=== PATIENT | female | born 1935 | race Caucasian/White ===

== ENCOUNTER 2021-04-22 14:35 | Inpatient (IN) | payer MEDICARE ==
[2021-04-22] MEDS ORDERED: Senokot S 8.6-50 MG TAB PO PRN (16:27)
[2021-04-22] MEDS: Atorvastatin Calcium 10 MG TAB PO SCH (20:49)
[2021-04-22] MEDS: HYDROcodone/Acetaminophen 7.5/325 mg Tablet PO SCH (20:52)
[2021-04-23] MEDS: Folic Acid 1 MG TAB PO SCH (09:09)
[2021-04-23] MEDS: Docusate 100 MG CAP PO SCH (09:09)
[2021-04-23] MEDS: Losartan Potassium 50 MG TAB PO SCH (09:09)
[2021-04-23] MEDS: Enoxaparin Sodium 40 MG/0.4 ML SYRINGE SC SCH (09:09)
[2021-04-23] MEDS: Potassium Bicarbonate/Cit Ac 20 MEQ TAB PO SCH (09:10)
[2021-04-23] MEDS: Estradiol 1 MG TAB PO SCH (09:10)
[2021-04-23] MEDS: HYDROcodone/Acetaminophen 7.5/325 mg Tablet PO SCH ×3 (09:10→21:04)
[2021-04-23] MEDS: Baclofen 10 MG TAB PO PRN (17:43)
[2021-04-23] MEDS: Atorvastatin Calcium 10 MG TAB PO SCH (21:03)
[2021-04-24 05:16] LABS: #Eosinphils 0.3 thou/uL (0.0-0.7); #Lymphocytes 0.9 thou/uL (1.20-3.40); #Monocytes 0.6 thou/uL (0.11-0.59); #Neutrophils 5.4 thou/uL (1.40-6.50); %Basophils 0.6 % (0.0-1.0); %Eosinophils 3.6 % (0.0-10.0); %Lymphocytes 12.3 % (21.0-51.0); %Monocytes 8.1 % (0.0-10.0); %Neutrophils 75.4 % (42.0-75.0); Mean Corpuscular HGB CONC 31.4 g/dL (32.0-36.0); Mean Corpuscular Hemoglobin 29.1 pg (27.0-31.0); Mean Platelet Volume 10.7 fL (7.4-10.4); Platelet Count 234 thou/uL (130-400); RBC Distribution Width 12.9 % (11.5-14.5); Red Blood Cell (RBC) Count 3.79 mill/uL (4.20-5.40); White Blood Cell (WBC) Count 7.2 thou/uL (4.8-10.8)
[2021-04-24 05:43] LABS: Anion Gap 10 mmol/L (10-20); BUN (Urea Nitrogen) 10 mg/dL (9.8-20.1); Calc. Creatinine Clearance 57 mL/min (70-130); Calcium 10.2 mg/dL (7.8-10.44); Carbon Dioxide 31 mmol/L (23-31); Chloride 104 mmol/L (98-107); Glucose 129 mg/dL (83-110); Potassium 3.9 mmol/L (3.5-5.1); Sodium 141 mmol/L (136-145)
[2021-04-24] MEDS: Docusate 100 MG CAP PO SCH (08:49)
[2021-04-24] MEDS: HYDROcodone/Acetaminophen 7.5/325 mg Tablet PO SCH ×3 (08:49→21:58)
[2021-04-24] MEDS: Enoxaparin Sodium 40 MG/0.4 ML SYRINGE SC SCH (08:49)
[2021-04-24] MEDS: Estradiol 1 MG TAB PO SCH (08:51)
[2021-04-24] MEDS: Losartan Potassium 50 MG TAB PO SCH (08:51)
[2021-04-24] MEDS: Folic Acid 1 MG TAB PO SCH (08:52)
[2021-04-24] MEDS: Potassium Bicarbonate/Cit Ac 20 MEQ TAB PO SCH (08:58)
[2021-04-24] MEDS: Baclofen 10 MG TAB PO PRN (11:20)
[2021-04-24] MEDS: Atorvastatin Calcium 10 MG TAB PO SCH (21:58)
[2021-04-25] MEDS: Enoxaparin Sodium 40 MG/0.4 ML SYRINGE SC SCH (09:26)
[2021-04-25] MEDS: HYDROcodone/Acetaminophen 7.5/325 mg Tablet PO SCH ×3 (09:26→21:01)
[2021-04-25] MEDS: Docusate 100 MG CAP PO SCH (09:27)
[2021-04-25] MEDS: Folic Acid 1 MG TAB PO SCH (09:27)
[2021-04-25] MEDS: Losartan Potassium 50 MG TAB PO SCH (09:27)
[2021-04-25] MEDS: Potassium Bicarbonate/Cit Ac 20 MEQ TAB PO SCH (09:27)
[2021-04-25] MEDS: Estradiol 1 MG TAB PO SCH (09:28)
[2021-04-25] MEDS: Baclofen 10 MG TAB PO PRN (11:17)
[2021-04-25] MEDS: Atorvastatin Calcium 10 MG TAB PO SCH (21:01)
[2021-04-26] MEDS: Losartan Potassium 50 MG TAB PO SCH (08:42)
[2021-04-26] MEDS: Estradiol 1 MG TAB PO SCH (08:42)
[2021-04-26] MEDS: Folic Acid 1 MG TAB PO SCH (08:42)
[2021-04-26] MEDS: Docusate 100 MG CAP PO SCH (08:42)
[2021-04-26] MEDS: Potassium Bicarbonate/Cit Ac 20 MEQ TAB PO SCH (08:42)
[2021-04-26] MEDS: HYDROcodone/Acetaminophen 7.5/325 mg Tablet PO SCH (08:43)
[2021-04-26] MEDS: Enoxaparin Sodium 40 MG/0.4 ML SYRINGE SC SCH (08:44)
[2021-04-26] MEDS: HYDROcodone/Acetaminophen 5/325 mg Tablet PO SCH ×2 (15:21→20:12)
[2021-04-26] MEDS: Atorvastatin Calcium 10 MG TAB PO SCH (20:11)
[2021-04-27] MEDS: HYDROcodone/Acetaminophen 5/325 mg Tablet PO SCH ×3 (08:18→19:48)
[2021-04-27] MEDS: Estradiol 1 MG TAB PO SCH (08:19)
[2021-04-27] MEDS: Potassium Bicarbonate/Cit Ac 20 MEQ TAB PO SCH (08:19)
[2021-04-27] MEDS: Docusate 100 MG CAP PO SCH ×2 (08:20→08:41)
[2021-04-27] MEDS: Losartan Potassium 50 MG TAB PO SCH (08:20)
[2021-04-27] MEDS: Enoxaparin Sodium 40 MG/0.4 ML SYRINGE SC SCH (08:20)
[2021-04-27] MEDS: Folic Acid 1 MG TAB PO SCH (08:20)
[2021-04-27] MEDS: Baclofen 10 MG TAB PO PRN (10:21)
[2021-04-27] MEDS: Atorvastatin Calcium 10 MG TAB PO SCH (19:50)
[2021-04-28] MEDS: Baclofen 10 MG TAB PO PRN ×2 (04:42→20:58)
[2021-04-28 05:20] LABS: #Basophils 0.1 thou/uL (0.0-0.2); #Eosinphils 0.3 thou/uL (0.0-0.7); #Lymphocytes 0.9 thou/uL (1.20-3.40); #Monocytes 0.6 thou/uL (0.11-0.59); #Neutrophils 4.1 thou/uL (1.40-6.50); %Basophils 1.5 % (0.0-1.0); %Eosinophils 4.6 % (0.0-10.0); %Lymphocytes 15.3 % (21.0-51.0); %Monocytes 10.4 % (0.0-10.0); %Neutrophils 68.2 % (42.0-75.0); Hemoglobin 11.8 g/dL (12.0-16.0); Mean Corpuscular HGB CONC 30.9 g/dL (32.0-36.0); Mean Corpuscular Hemoglobin 28.9 pg (27.0-31.0); Mean Corpuscular Volume 93.5 fL (78.0-98.0); Mean Platelet Volume 9.2 fL (7.4-10.4); Platelet Count 302 thou/uL (130-400); RBC Distribution Width 12.6 % (11.5-14.5)
[2021-04-28 05:38] LABS: Anion Gap 11 mmol/L (10-20); BUN (Urea Nitrogen) 16 mg/dL (9.8-20.1); Calc. Creatinine Clearance 49 mL/min (70-130); Calcium 10.5 mg/dL (7.8-10.44); Carbon Dioxide 30 mmol/L (23-31); Chloride 104 mmol/L (98-107); Glucose 141 mg/dL (83-110); Potassium 4.5 mmol/L (3.5-5.1); Sodium 140 mmol/L (136-145)
[2021-04-28] MEDS: HYDROcodone/Acetaminophen 5/325 mg Tablet PO SCH ×3 (08:16→20:55)
[2021-04-28] MEDS: Estradiol 1 MG TAB PO SCH (08:17)
[2021-04-28] MEDS: Losartan Potassium 50 MG TAB PO SCH (08:17)
[2021-04-28] MEDS: Docusate 100 MG CAP PO SCH (08:18)
[2021-04-28] MEDS: Folic Acid 1 MG TAB PO SCH (08:18)
[2021-04-28] MEDS: Enoxaparin Sodium 40 MG/0.4 ML SYRINGE SC SCH (08:18)
[2021-04-28] MEDS: Potassium Bicarbonate/Cit Ac 20 MEQ TAB PO SCH (08:18)
[2021-04-28 14:11] LABS: SARS-CoV-2 PCR by NAA Not Detected (NotDetected)
[2021-04-28] MEDS: Atorvastatin Calcium 10 MG TAB PO SCH (20:56)
[2021-04-29] MEDS: Docusate 100 MG CAP PO SCH (08:51)
[2021-04-29] MEDS: Potassium Bicarbonate/Cit Ac 20 MEQ TAB PO SCH (08:51)
[2021-04-29] MEDS: Estradiol 1 MG TAB PO SCH (08:51)
[2021-04-29] MEDS: HYDROcodone/Acetaminophen 5/325 mg Tablet PO SCH ×3 (08:52→20:46)
[2021-04-29] MEDS: Folic Acid 1 MG TAB PO SCH (08:52)
[2021-04-29] MEDS: Enoxaparin Sodium 40 MG/0.4 ML SYRINGE SC SCH (08:52)
[2021-04-29] MEDS: Losartan Potassium 50 MG TAB PO SCH (08:52)
[2021-04-29] MEDS: Baclofen 10 MG TAB PO PRN (18:02)
[2021-04-29] MEDS: Atorvastatin Calcium 10 MG TAB PO SCH (20:46)
[2021-04-30] MEDS: Baclofen 10 MG TAB PO PRN ×3 (00:33→22:04)
[2021-04-30] MEDS: Potassium Bicarbonate/Cit Ac 20 MEQ TAB PO SCH (08:07)
[2021-04-30] MEDS: Losartan Potassium 50 MG TAB PO SCH (08:07)
[2021-04-30] MEDS: Estradiol 1 MG TAB PO SCH (08:07)
[2021-04-30] MEDS: Folic Acid 1 MG TAB PO SCH (08:07)
[2021-04-30] MEDS: HYDROcodone/Acetaminophen 5/325 mg Tablet PO SCH ×3 (08:08→20:25)
[2021-04-30] MEDS: Enoxaparin Sodium 40 MG/0.4 ML SYRINGE SC SCH (08:08)
[2021-04-30] MEDS: Docusate 100 MG CAP PO SCH (08:08)
[2021-04-30] MEDS: Atorvastatin Calcium 10 MG TAB PO SCH (20:25)
[2021-05-01] MEDS: Baclofen 10 MG TAB PO PRN ×2 (07:45→14:35)
[2021-05-01] MEDS: HYDROcodone/Acetaminophen 5/325 mg Tablet PO SCH ×3 (08:11→20:01)
[2021-05-01] MEDS: Losartan Potassium 50 MG TAB PO SCH (08:12)
[2021-05-01] MEDS: Potassium Bicarbonate/Cit Ac 20 MEQ TAB PO SCH (08:12)
[2021-05-01] MEDS: Folic Acid 1 MG TAB PO SCH (08:12)
[2021-05-01] MEDS: Docusate 100 MG CAP PO SCH (08:13)
[2021-05-01] MEDS: Estradiol 1 MG TAB PO SCH (08:13)
[2021-05-01] MEDS: Enoxaparin Sodium 40 MG/0.4 ML SYRINGE SC SCH (08:13)
[2021-05-01] MEDS: Atorvastatin Calcium 10 MG TAB PO SCH (20:00)
[2021-05-01] MEDS: Ondansetron ODT 4 MG TAB SL PRN ×2 (20:01→23:54)
[2021-05-02] MEDS: Baclofen 10 MG TAB PO PRN ×2 (00:26→19:25)
[2021-05-02] MEDS ORDERED: Promethazine HCl 25 MG/ML VIAL IM SCH (02:00)
[2021-05-02 05:36] LABS: #Lymphocytes 0.6 thou/uL (1.20-3.40); #Monocytes 0.2 thou/uL (0.11-0.59); #Neutrophils 7.6 thou/uL (1.40-6.50); %Basophils 0.3 % (0.0-1.0); %Lymphocytes 6.7 % (21.0-51.0); %Monocytes 1.8 % (0.0-10.0); %Neutrophils 91.2 % (42.0-75.0); Hemoglobin 12.8 g/dL (12.0-16.0); Mean Corpuscular HGB CONC 31.2 g/dL (32.0-36.0); Mean Corpuscular Hemoglobin 28.7 pg (27.0-31.0); Mean Corpuscular Volume 91.9 fL (78.0-98.0); Mean Platelet Volume 8.7 fL (7.4-10.4); Platelet Count 375 thou/uL (130-400); RBC Distribution Width 12.4 % (11.5-14.5); Red Blood Cell (RBC) Count 4.47 mill/uL (4.20-5.40); White Blood Cell (WBC) Count 8.4 thou/uL (4.8-10.8)
[2021-05-02 05:52] LABS: ALT (SGPT) 26 U/L (8-55); AST (SGOT) 15 U/L (5-34); Albumin 4.4 g/dL (3.4-4.8); Alkaline Phosphatase 86 U/L (40-110); Anion Gap 17 mmol/L (10-20); BUN (Urea Nitrogen) 13 mg/dL (9.8-20.1); Bilirubin, Total Less than 0.2 mg/dL (0.2-1.2); Calc. Creatinine Clearance 52 mL/min (70-130); Calcium 10.7 mg/dL (7.8-10.44); Carbon Dioxide 25 mmol/L (23-31); Chloride 101 mmol/L (98-107); Globulin 2.9 g/dL (2.4-3.5); Glucose 166 mg/dL (83-110); Potassium 4.1 mmol/L (3.5-5.1); Protein, Total 7.3 g/dL (5.8-8.1); Sodium 139 mmol/L (136-145)
[2021-05-02] MEDS: Potassium Bicarbonate/Cit Ac 20 MEQ TAB PO SCH (08:58)
[2021-05-02] MEDS: Docusate 100 MG CAP PO SCH (08:58)
[2021-05-02] MEDS: Enoxaparin Sodium 40 MG/0.4 ML SYRINGE SC SCH (08:58)
[2021-05-02] MEDS: HYDROcodone/Acetaminophen 5/325 mg Tablet PO SCH ×3 (08:59→20:00)
[2021-05-02] MEDS: Folic Acid 1 MG TAB PO SCH (08:59)
[2021-05-02] MEDS: Estradiol 1 MG TAB PO SCH (08:59)
[2021-05-02] MEDS: Losartan Potassium 50 MG TAB PO SCH ×2 (08:59→10:01)
[2021-05-02] MEDS: Atorvastatin Calcium 10 MG TAB PO SCH (20:01)
[2021-05-02 20:32] LABS: SARS-CoV-2 NAA Rapid Test Not Detected (NotDetected)
[2021-05-03] MEDS: Baclofen 10 MG TAB PO PRN ×2 (04:15→21:42)
[2021-05-03] MEDS: HYDROcodone/Acetaminophen 5/325 mg Tablet PO SCH ×3 (08:26→20:01)
[2021-05-03] MEDS: Losartan Potassium 50 MG TAB PO SCH (08:27)
[2021-05-03] MEDS: Potassium Bicarbonate/Cit Ac 20 MEQ TAB PO SCH (08:27)
[2021-05-03] MEDS: Estradiol 1 MG TAB PO SCH (08:27)
[2021-05-03] MEDS: Enoxaparin Sodium 40 MG/0.4 ML SYRINGE SC SCH (08:28)
[2021-05-03] MEDS: Folic Acid 1 MG TAB PO SCH (08:28)
[2021-05-03] MEDS: Docusate 100 MG CAP PO SCH (08:28)
[2021-05-03 11:55] VITALS: BMI 23.6
[2021-05-03] MEDS ORDERED: Loperamide HCl 2 MG CAP PO SCH (17:30)
[2021-05-03] MEDS: Atorvastatin Calcium 10 MG TAB PO SCH (20:00)
[2021-05-04] MEDS: HYDROcodone/Acetaminophen 5/325 mg Tablet PO SCH ×3 (08:21→20:09)
[2021-05-04] MEDS: Enoxaparin Sodium 40 MG/0.4 ML SYRINGE SC SCH (08:21)
[2021-05-04] MEDS: Estradiol 1 MG TAB PO SCH (08:22)
[2021-05-04] MEDS: Docusate 100 MG CAP PO SCH (08:23)
[2021-05-04] MEDS: Potassium Bicarbonate/Cit Ac 20 MEQ TAB PO SCH (08:23)
[2021-05-04] MEDS: Folic Acid 1 MG TAB PO SCH (08:23)
[2021-05-04] MEDS: Losartan Potassium 50 MG TAB PO SCH (08:23)
[2021-05-04] MEDS: Atorvastatin Calcium 10 MG TAB PO SCH (20:10)
[2021-05-04] MEDS: Baclofen 10 MG TAB PO PRN (21:05)
[2021-05-05 07:16] VITALS: BP 118/68; TEMP 97.6
[2021-05-05] MEDS: Enoxaparin Sodium 40 MG/0.4 ML SYRINGE SC SCH (08:25)
[2021-05-05] MEDS: Folic Acid 1 MG TAB PO SCH (08:26)
[2021-05-05] MEDS: Estradiol 1 MG TAB PO SCH (08:26)
[2021-05-05] MEDS: Docusate 100 MG CAP PO SCH (08:26)
[2021-05-05] MEDS: Potassium Bicarbonate/Cit Ac 20 MEQ TAB PO SCH (08:26)
[2021-05-05] MEDS: Losartan Potassium 50 MG TAB PO SCH (08:26)
[2021-05-05] MEDS: HYDROcodone/Acetaminophen 5/325 mg Tablet PO SCH (08:27)
[2021-05-05] MEDS ORDERED: HYDROcodone/Acetaminophen 7.5/325 mg Tablet PO SCH (21:00)
== END 2021-05-05 13:20 | disposition home or self-care (01) | DRG 948 ==
LOC: MADMS 14:35
PROVIDERS: ADMIT Family Medicine; ATTEND Family Medicine
DX: R53.81 Other malaise (principal); Z20.822 Contact with and (suspected) exposure to COVID-19; I10 Essential (primary) hypertension; E78.5 Hyperlipidemia, unspecified; G89.29 Other chronic pain; R29.898 Other symptoms and signs involving the musculoskeletal system; M54.50 Low back pain, unspecified; E11.9 Type 2 diabetes mellitus without complications; R26.89 Other abnormalities of gait and mobility; D64.9 Anemia, unspecified; F03.90 Unspecified dementia, unspecified severity, without behavioral disturbance, psychotic disturbance, mood disturbance, and anxiety; R11.2 Nausea with vomiting, unspecified; Z79.899 Other long term (current) drug therapy; Z90.49 Acquired absence of other specified parts of digestive tract; Z90.89 Acquired absence of other organs; Z90.710 Acquired absence of both cervix and uterus; Z98.890 Other specified postprocedural states; Z79.890 Hormone replacement therapy; Z87.898 Personal history of other specified conditions; Z91.81 History of falling
CPT/HCPCS: 0240U; 36415; 36416; 80048; 80053; 82728; 85025; J1650; J2550; Q0162; U0003; U0005

== ENCOUNTER 2021-12-21 20:53 | Inpatient (IN) | payer OTHER ==
[2021-12-21 21:49] VITALS: BMI 21.6
[2021-12-21] MEDS ORDERED: HYDROcodone/Acetaminophen 7.5/325 mg Tablet PO PRN (23:20)
[2021-12-21] MEDS ORDERED: Oxybutynin 5 MG TAB PO SCH (23:30)
[2021-12-21] MEDS ORDERED: Donepezil HCl 10 MG TAB PO SCH (23:30)
[2021-12-22] MEDS ORDERED: Atorvastatin Calcium 10 MG TAB PO SCH (09:00)
[2021-12-22] MEDS: Docusate 100 MG CAP PO SCH (09:39)
[2021-12-22] MEDS: Estradiol 1 MG TAB PO SCH (09:39)
[2021-12-22] MEDS: Folic Acid 1 MG TAB PO SCH (09:40)
[2021-12-22] MEDS: Oxybutynin 5 MG TAB PO SCH ×2 (09:40→20:53)
[2021-12-22] MEDS: Losartan Potassium 50 MG TAB PO SCH (09:40)
[2021-12-22] MEDS: Empagliflozin 25 MG TAB PO SCH (09:44)
[2021-12-22] MEDS: Acetaminophen 325 MG TAB PO PRN ×2 (13:36→22:23)
[2021-12-22] MEDS: Fluconazole 100 MG TAB PO SCH (13:37)
[2021-12-22] MEDS: Donepezil HCl 10 MG TAB PO SCH (20:53)
[2021-12-22] MEDS: Baclofen 10 MG TAB PO PRN (20:54)
[2021-12-22] MEDS: Clotrimazole 1% Cream 15 GM TUBE TOP SCH (21:01)
[2021-12-23 05:48] LABS: ALT (SGPT) 14 U/L (8-55); AST (SGOT) 6 U/L (5-34); Albumin 3.2 g/dL (3.4-4.8); Alkaline Phosphatase 95 U/L (40-110); Anion Gap 15 mmol/L (10-20); BUN (Urea Nitrogen) 26 mg/dL (9.8-20.1); Bilirubin, Total 0.2 mg/dL (0.2-1.2); Calc. Creatinine Clearance 34 mL/min (70-130); Calcium 9.7 mg/dL (7.8-10.44); Carbon Dioxide 22 mmol/L (23-31); Chloride 105 mmol/L (98-107); Estimated GFR 57; Glucose 142 mg/dL (83-110); Protein, Total 6.2 g/dL (5.8-8.1); Sodium 138 mmol/L (136-145)
[2021-12-23 05:54] LABS: #Basophils 0.1 thou/uL (0.0-0.2); #Eosinphils 0.4 thou/uL (0.0-0.7); #Monocytes 0.6 thou/uL (0.11-0.59); %Basophils 1.2 % (0.0-1.0); %Eosinophils 6.1 % (0.0-10.0); %Lymphocytes 13.8 % (21.0-51.0); Hemoglobin 8.7 g/dL (12.0-16.0); Hypochromia SLIGHT = 6-15 cells (100X) (0-5/hpf); Large Platelets SLIGHT; MDiff Complete? YES; Macrocytosis SLIGHT = 6-15 cells (100X) (0-5/hpf); Mean Corpuscular HGB CONC 30.1 g/dL (32.0-36.0); Mean Corpuscular Hemoglobin 26.1 pg (27.0-31.0); Mean Platelet Volume 12.9 fL (7.4-10.4); Platelet Count 268 thou/uL (130-400); Polychromasia SLIGHT = 2-3 cells (100X) (0-2/hpf); Red Blood Cell (RBC) Count 3.32 mill/uL (4.20-5.40)
[2021-12-23] MEDS: Clotrimazole 1% Cream 15 GM TUBE TOP SCH ×2 (08:45→21:41)
[2021-12-23] MEDS: Estradiol 1 MG TAB PO SCH (08:46)
[2021-12-23] MEDS: Losartan Potassium 50 MG TAB PO SCH (08:46)
[2021-12-23] MEDS: Folic Acid 1 MG TAB PO SCH (08:48)
[2021-12-23] MEDS: Empagliflozin 25 MG TAB PO SCH (08:48)
[2021-12-23] MEDS: Oxybutynin 5 MG TAB PO SCH ×2 (08:48→21:35)
[2021-12-23] MEDS: Fluconazole 100 MG TAB PO SCH (08:49)
[2021-12-23] MEDS: Docusate 100 MG CAP PO SCH (08:49)
[2021-12-23 11:23] LABS: Hemoglobin A1c 7.8 % (4.0-6.0)
[2021-12-23] MEDS: Acetaminophen 325 MG TAB PO PRN ×2 (17:10→21:38)
[2021-12-23] MEDS: Baclofen 10 MG TAB PO PRN (21:36)
[2021-12-23] MEDS: Donepezil HCl 10 MG TAB PO SCH (21:36)
[2021-12-24] MEDS: Acetaminophen 325 MG TAB PO PRN ×3 (05:23→21:26)
[2021-12-24] MEDS: Clotrimazole 1% Cream 15 GM TUBE TOP SCH ×2 (08:04→21:28)
[2021-12-24] MEDS: Estradiol 1 MG TAB PO SCH (08:05)
[2021-12-24] MEDS: Oxybutynin 5 MG TAB PO SCH ×2 (08:05→21:19)
[2021-12-24] MEDS: Fluconazole 100 MG TAB PO SCH (08:05)
[2021-12-24] MEDS: Folic Acid 1 MG TAB PO SCH (08:05)
[2021-12-24] MEDS: Empagliflozin 25 MG TAB PO SCH (08:05)
[2021-12-24] MEDS: Docusate 100 MG CAP PO SCH (08:06)
[2021-12-24] MEDS: Losartan Potassium 50 MG TAB PO SCH (08:06)
[2021-12-24] MEDS: Donepezil HCl 10 MG TAB PO SCH (21:19)
[2021-12-24] MEDS: Baclofen 10 MG TAB PO PRN (21:26)
[2021-12-25] MEDS: Baclofen 10 MG TAB PO PRN ×3 (04:42→20:44)
[2021-12-25] MEDS: Acetaminophen 325 MG TAB PO PRN ×3 (04:43→20:44)
[2021-12-25] MEDS: Clotrimazole 1% Cream 15 GM TUBE TOP SCH ×2 (08:28→21:00)
[2021-12-25] MEDS: Oxybutynin 5 MG TAB PO SCH ×2 (08:29→20:42)
[2021-12-25] MEDS: Docusate 100 MG CAP PO SCH (08:29)
[2021-12-25] MEDS: Folic Acid 1 MG TAB PO SCH (08:29)
[2021-12-25] MEDS: Losartan Potassium 50 MG TAB PO SCH (08:29)
[2021-12-25] MEDS: Fluconazole 100 MG TAB PO SCH (08:30)
[2021-12-25] MEDS: Empagliflozin 25 MG TAB PO SCH (08:30)
[2021-12-25] MEDS: Estradiol 1 MG TAB PO SCH (08:30)
[2021-12-25] MEDS: Donepezil HCl 10 MG TAB PO SCH (20:43)
[2021-12-26] MEDS: Acetaminophen 325 MG TAB PO PRN ×4 (00:47→20:47)
[2021-12-26] MEDS: Baclofen 10 MG TAB PO PRN ×2 (07:40→20:47)
[2021-12-26] MEDS: Clotrimazole 1% Cream 15 GM TUBE TOP SCH ×2 (07:40→20:03)
[2021-12-26] MEDS: Estradiol 1 MG TAB PO SCH (08:09)
[2021-12-26] MEDS: Empagliflozin 25 MG TAB PO SCH (08:09)
[2021-12-26] MEDS: Losartan Potassium 50 MG TAB PO SCH (08:10)
[2021-12-26] MEDS: Docusate 100 MG CAP PO SCH (08:10)
[2021-12-26] MEDS: Oxybutynin 5 MG TAB PO SCH ×2 (08:10→20:03)
[2021-12-26] MEDS: Fluconazole 100 MG TAB PO SCH (08:10)
[2021-12-26] MEDS: Folic Acid 1 MG TAB PO SCH (08:10)
[2021-12-26 11:17] LABS: Bilirubin Negative (Negative); Blood, Urine Large (Negative); Glucose, Urine (Dipstick) >=1000 mg/dL (Negative); Ketone, Urine Negative (Negative); Leukocyte Large (Negative); Nitrite Negative (Negative); Protein, Urine (Dipstick) 100 mg/dL (Neg-Trace); Urobilinogen 0.2 mg/dL (Less than 2)
[2021-12-26 11:19] LABS: Clarity Cloudy (Clear)
[2021-12-26 11:28] LABS: Bacteria/HPF 1+ HPF (None Seen); WBC/HPF Greater Than 50 HPF (0-3)
[2021-12-26] MEDS: Phenazopyridine HCl 95 MG TAB PO SCH ×2 (13:47→17:28)
[2021-12-26] MEDS: Ciprofloxacin 500 MG TAB PO SCH (20:03)
[2021-12-26] MEDS: Donepezil HCl 10 MG TAB PO SCH (20:03)
[2021-12-27] MEDS: Ciprofloxacin 500 MG TAB PO SCH ×2 (05:30→20:31)
[2021-12-27] MEDS: Baclofen 10 MG TAB PO PRN ×2 (05:30→20:31)
[2021-12-27] MEDS: Acetaminophen 325 MG TAB PO PRN ×3 (05:30→20:32)
[2021-12-27] MEDS: Docusate 100 MG CAP PO SCH (08:51)
[2021-12-27] MEDS: Phenazopyridine HCl 95 MG TAB PO SCH ×3 (08:51→17:25)
[2021-12-27] MEDS: Empagliflozin 25 MG TAB PO SCH (08:51)
[2021-12-27] MEDS: Losartan Potassium 50 MG TAB PO SCH (08:52)
[2021-12-27] MEDS: Fluconazole 100 MG TAB PO SCH (08:52)
[2021-12-27] MEDS: Folic Acid 1 MG TAB PO SCH (08:52)
[2021-12-27] MEDS: Estradiol 1 MG TAB PO SCH (08:52)
[2021-12-27] MEDS: Oxybutynin 5 MG TAB PO SCH ×2 (08:52→20:31)
[2021-12-27] MEDS: Clotrimazole 1% Cream 15 GM TUBE TOP SCH ×2 (08:55→20:26)
[2021-12-27] MEDS: Donepezil HCl 10 MG TAB PO SCH (20:31)
[2021-12-28] MEDS: Ciprofloxacin 500 MG TAB PO SCH ×2 (06:03→20:29)
[2021-12-28] MEDS: Docusate 100 MG CAP PO SCH (08:07)
[2021-12-28] MEDS: Estradiol 1 MG TAB PO SCH (08:07)
[2021-12-28] MEDS: Acetaminophen 325 MG TAB PO PRN ×3 (08:07→20:30)
[2021-12-28] MEDS: Phenazopyridine HCl 95 MG TAB PO SCH ×2 (08:08→12:20)
[2021-12-28] MEDS: Losartan Potassium 50 MG TAB PO SCH (08:08)
[2021-12-28] MEDS: Empagliflozin 25 MG TAB PO SCH (08:08)
[2021-12-28] MEDS: Fluconazole 100 MG TAB PO SCH (08:09)
[2021-12-28] MEDS: Oxybutynin 5 MG TAB PO SCH ×2 (08:09→20:30)
[2021-12-28] MEDS: Baclofen 10 MG TAB PO PRN ×2 (08:09→15:43)
[2021-12-28] MEDS: Clotrimazole 1% Cream 15 GM TUBE TOP SCH ×2 (08:10→20:30)
[2021-12-28] MEDS: Folic Acid 1 MG TAB PO SCH (08:10)
[2021-12-28] MEDS: Donepezil HCl 10 MG TAB PO SCH (20:29)
[2021-12-29] MEDS: Baclofen 10 MG TAB PO PRN ×3 (04:10→17:15)
[2021-12-29] MEDS: Acetaminophen 325 MG TAB PO PRN ×3 (04:10→17:15)
[2021-12-29] MEDS: Ciprofloxacin 500 MG TAB PO SCH (06:09)
[2021-12-29] MEDS: Docusate 100 MG CAP PO SCH ×2 (08:11→08:15)
[2021-12-29] MEDS: Fluconazole 100 MG TAB PO SCH (08:11)
[2021-12-29] MEDS: Losartan Potassium 50 MG TAB PO SCH (08:11)
[2021-12-29] MEDS: Estradiol 1 MG TAB PO SCH (08:11)
[2021-12-29] MEDS: Oxybutynin 5 MG TAB PO SCH ×2 (08:12→21:12)
[2021-12-29] MEDS: Empagliflozin 25 MG TAB PO SCH (08:12)
[2021-12-29] MEDS: Clotrimazole 1% Cream 15 GM TUBE TOP SCH ×2 (08:12→21:12)
[2021-12-29] MEDS: Folic Acid 1 MG TAB PO SCH (08:12)
[2021-12-29] MEDS: Donepezil HCl 10 MG TAB PO SCH (21:12)
[2021-12-30] MEDS: Baclofen 10 MG TAB PO PRN ×4 (03:55→21:39)
[2021-12-30] MEDS: Acetaminophen 325 MG TAB PO PRN ×4 (03:55→21:39)
[2021-12-30] MEDS: Losartan Potassium 50 MG TAB PO SCH (08:06)
[2021-12-30] MEDS: Oxybutynin 5 MG TAB PO SCH ×2 (08:06→21:39)
[2021-12-30] MEDS: Estradiol 1 MG TAB PO SCH (08:06)
[2021-12-30] MEDS: Empagliflozin 25 MG TAB PO SCH (08:07)
[2021-12-30] MEDS: Docusate 100 MG CAP PO SCH (08:07)
[2021-12-30] MEDS: Folic Acid 1 MG TAB PO SCH (08:07)
[2021-12-30] MEDS: Clotrimazole 1% Cream 15 GM TUBE TOP SCH ×2 (08:07→21:38)
[2021-12-30] MEDS: Donepezil HCl 10 MG TAB PO SCH (21:39)
[2021-12-31] MEDS: Acetaminophen 325 MG TAB PO PRN (05:57)
[2021-12-31] MEDS: Baclofen 10 MG TAB PO PRN (05:57)
[2021-12-31] MEDS: Estradiol 1 MG TAB PO SCH (07:54)
[2021-12-31] MEDS: Empagliflozin 25 MG TAB PO SCH (07:54)
[2021-12-31] MEDS: Losartan Potassium 50 MG TAB PO SCH (07:55)
[2021-12-31] MEDS: Oxybutynin 5 MG TAB PO SCH (07:55)
[2021-12-31] MEDS: Clotrimazole 1% Cream 15 GM TUBE TOP SCH (07:55)
[2021-12-31] MEDS: Docusate 100 MG CAP PO SCH (07:55)
[2021-12-31] MEDS: Folic Acid 1 MG TAB PO SCH (07:55)
[2021-12-31 08:23] VITALS: BP 148/55; TEMP 98.5
== END 2021-12-31 11:50 | disposition home or self-care (01) | DRG 948 ==
LOC: MADMS 20:53 → UNDOADMIN 20:53
PROVIDERS: ADMIT Family Medicine; ATTEND Family Medicine
DX: R53.81 Other malaise (principal); I47.1 Supraventricular tachycardia; N39.0 Urinary tract infection, site not specified; Z20.822 Contact with and (suspected) exposure to COVID-19; R53.1 Weakness; I10 Essential (primary) hypertension; G89.29 Other chronic pain; M54.50 Low back pain, unspecified; F03.90 Unspecified dementia, unspecified severity, without behavioral disturbance, psychotic disturbance, mood disturbance, and anxiety; E11.9 Type 2 diabetes mellitus without complications; E78.5 Hyperlipidemia, unspecified; Z90.49 Acquired absence of other specified parts of digestive tract; Z90.710 Acquired absence of both cervix and uterus; Z79.899 Other long term (current) drug therapy
CPT/HCPCS: 36416; 80053; 81001; 83036; 85025; 87077; 87086; 87186; U0003; U0005

== ENCOUNTER 2022-02-02 19:14 | Inpatient (IN) | payer OTHER ==
[2022-02-02 19:41] VITALS: BMI 22.0
[2022-02-02] MEDS ORDERED: Atorvastatin Calcium 10 MG TAB PO SCH (21:00)
[2022-02-02] MEDS: Estradiol 1 MG TAB PO SCH (21:44)
[2022-02-02] MEDS: Donepezil HCl 10 MG TAB PO SCH (21:50)
[2022-02-02] MEDS: Losartan 25 MG TAB PO SCH (21:51)
[2022-02-02] MEDS: Oxybutynin 5 MG TAB PO SCH (21:52)
[2022-02-02] MEDS: Baclofen 10 MG TAB PO PRN (21:53)
[2022-02-03] MEDS: Oxybutynin 5 MG TAB PO SCH ×2 (08:29→21:13)
[2022-02-03] MEDS: Aspirin 81 mg Enteric Coated Tablet PO SCH (08:29)
[2022-02-03] MEDS: Empagliflozin 25 MG TAB PO SCH (08:29)
[2022-02-03] MEDS ORDERED: FLU VACC QS2022-23(65YR UP)/PF 240 MCG/0.7 ML SYRINGE IM ONE (09:00)
[2022-02-03] MEDS ORDERED: Estradiol 1 MG TAB PO SCH (09:00)
[2022-02-03] MEDS: Clotrimazole 1% Cream 15 GM TUBE TOP SCH ×2 (09:06→21:15)
[2022-02-03] MEDS: Fluconazole 100 MG TAB PO SCH (09:06)
[2022-02-03] MEDS: Acetaminophen 325 MG TAB PO PRN (17:55)
[2022-02-03] MEDS: Estradiol 1 MG TAB PO SCH (21:12)
[2022-02-03] MEDS: Losartan 25 MG TAB PO SCH (21:12)
[2022-02-03] MEDS: Donepezil HCl 10 MG TAB PO SCH (21:13)
[2022-02-03] MEDS: Baclofen 10 MG TAB PO PRN (21:13)
[2022-02-04] MEDS: Oxybutynin 5 MG TAB PO SCH ×2 (08:18→21:05)
[2022-02-04] MEDS: Clotrimazole 1% Cream 15 GM TUBE TOP SCH ×2 (08:18→21:06)
[2022-02-04] MEDS: Fluconazole 100 MG TAB PO SCH (08:18)
[2022-02-04] MEDS: Aspirin 81 mg Enteric Coated Tablet PO SCH (08:18)
[2022-02-04] MEDS: Empagliflozin 25 MG TAB PO SCH (08:18)
[2022-02-04] MEDS: Acetaminophen 325 MG TAB PO PRN ×2 (09:55→18:59)
[2022-02-04] MEDS: Lantiseptic Ointment 130 GM JAR TOP PRN (21:05)
[2022-02-04] MEDS: Baclofen 10 MG TAB PO PRN (21:05)
[2022-02-04] MEDS: Estradiol 1 MG TAB PO SCH (21:05)
[2022-02-04] MEDS: Losartan 25 MG TAB PO SCH (21:05)
[2022-02-04] MEDS: Donepezil HCl 10 MG TAB PO SCH (21:05)
[2022-02-05] MEDS: Empagliflozin 25 MG TAB PO SCH (08:28)
[2022-02-05] MEDS: Fluconazole 100 MG TAB PO SCH (08:28)
[2022-02-05] MEDS: Oxybutynin 5 MG TAB PO SCH ×2 (08:28→21:35)
[2022-02-05] MEDS: Acetaminophen 325 MG TAB PO PRN ×3 (08:28→21:36)
[2022-02-05] MEDS: Aspirin 81 mg Enteric Coated Tablet PO SCH (08:28)
[2022-02-05] MEDS: Clotrimazole 1% Cream 15 GM TUBE TOP SCH ×2 (08:29→21:26)
[2022-02-05] MEDS: Lantiseptic Ointment 130 GM JAR TOP PRN ×2 (08:29→21:25)
[2022-02-05] MEDS: Losartan 25 MG TAB PO SCH (21:34)
[2022-02-05] MEDS: Baclofen 10 MG TAB PO PRN (21:35)
[2022-02-05] MEDS: Estradiol 1 MG TAB PO SCH (21:35)
[2022-02-05] MEDS: Donepezil HCl 10 MG TAB PO SCH (21:35)
[2022-02-06] MEDS: Acetaminophen 325 MG TAB PO PRN ×2 (05:38→20:19)
[2022-02-06] MEDS: Empagliflozin 25 MG TAB PO SCH (08:26)
[2022-02-06] MEDS: Clotrimazole 1% Cream 15 GM TUBE TOP SCH ×2 (08:26→20:52)
[2022-02-06] MEDS: Aspirin 81 mg Enteric Coated Tablet PO SCH (08:26)
[2022-02-06] MEDS: Fluconazole 100 MG TAB PO SCH (08:26)
[2022-02-06] MEDS: Oxybutynin 5 MG TAB PO SCH ×2 (08:26→20:19)
[2022-02-06] MEDS: Estradiol 1 MG TAB PO SCH (20:18)
[2022-02-06] MEDS: Donepezil HCl 10 MG TAB PO SCH (20:18)
[2022-02-06] MEDS: Baclofen 10 MG TAB PO PRN (20:19)
[2022-02-06] MEDS: Losartan 25 MG TAB PO SCH (20:52)
[2022-02-06] MEDS ORDERED: Losartan 25 MG TAB PO SCH (22:00)
[2022-02-07] MEDS: Loperamide HCl 2 MG CAP PO PRN (08:49)
[2022-02-07] MEDS: Acetaminophen 325 MG TAB PO PRN ×3 (08:49→20:36)
[2022-02-07] MEDS: Clotrimazole 1% Cream 15 GM TUBE TOP SCH ×2 (08:50→20:38)
[2022-02-07] MEDS: Oxybutynin 5 MG TAB PO SCH ×2 (08:50→20:34)
[2022-02-07] MEDS: Fluconazole 100 MG TAB PO SCH (08:50)
[2022-02-07] MEDS: Empagliflozin 25 MG TAB PO SCH (08:50)
[2022-02-07] MEDS: Aspirin 81 mg Enteric Coated Tablet PO SCH (08:50)
[2022-02-07] MEDS: Losartan 25 MG TAB PO SCH (20:34)
[2022-02-07] MEDS: Donepezil HCl 10 MG TAB PO SCH (20:35)
[2022-02-07] MEDS: Estradiol 1 MG TAB PO SCH (20:35)
[2022-02-07] MEDS: Baclofen 10 MG TAB PO PRN (20:36)
[2022-02-07] MEDS: Lantiseptic Ointment 130 GM JAR TOP PRN (20:38)
[2022-02-08] MEDS: Acetaminophen 325 MG TAB PO PRN ×2 (06:02→17:26)
[2022-02-08] MEDS: Baclofen 10 MG TAB PO PRN ×2 (06:03→17:26)
[2022-02-08] MEDS: Empagliflozin 25 MG TAB PO SCH (08:54)
[2022-02-08] MEDS: Fluconazole 100 MG TAB PO SCH (08:54)
[2022-02-08] MEDS: Aspirin 81 mg Enteric Coated Tablet PO SCH (08:54)
[2022-02-08] MEDS: Oxybutynin 5 MG TAB PO SCH ×2 (08:55→20:01)
[2022-02-08] MEDS: Clotrimazole 1% Cream 15 GM TUBE TOP SCH ×2 (08:57→20:02)
[2022-02-08] MEDS: Estradiol 1 MG TAB PO SCH (20:00)
[2022-02-08] MEDS: Losartan 25 MG TAB PO SCH (20:01)
[2022-02-08] MEDS: Donepezil HCl 10 MG TAB PO SCH (20:01)
[2022-02-09] MEDS: Baclofen 10 MG TAB PO PRN ×2 (07:30→18:32)
[2022-02-09] MEDS: Acetaminophen 325 MG TAB PO PRN ×2 (07:30→18:32)
[2022-02-09] MEDS: Fluconazole 100 MG TAB PO SCH (09:09)
[2022-02-09] MEDS: Empagliflozin 25 MG TAB PO SCH (09:09)
[2022-02-09] MEDS: Oxybutynin 5 MG TAB PO SCH ×2 (09:09→20:42)
[2022-02-09] MEDS: Aspirin 81 mg Enteric Coated Tablet PO SCH (09:09)
[2022-02-09] MEDS: Clotrimazole 1% Cream 15 GM TUBE TOP SCH ×2 (09:10→20:43)
[2022-02-09] MEDS: Loperamide HCl 2 MG CAP PO PRN (09:19)
[2022-02-09] MEDS: Estradiol 1 MG TAB PO SCH (20:42)
[2022-02-09] MEDS: Losartan 25 MG TAB PO SCH (20:42)
[2022-02-09] MEDS: Donepezil HCl 10 MG TAB PO SCH (20:42)
[2022-02-10] MEDS: Aspirin 81 mg Enteric Coated Tablet PO SCH (08:13)
[2022-02-10] MEDS: Empagliflozin 25 MG TAB PO SCH (08:13)
[2022-02-10] MEDS: Oxybutynin 5 MG TAB PO SCH ×2 (08:13→20:53)
[2022-02-10] MEDS: Loperamide HCl 2 MG CAP PO PRN (08:13)
[2022-02-10] MEDS: Fluconazole 100 MG TAB PO SCH (08:13)
[2022-02-10] MEDS: Lantiseptic Ointment 130 GM JAR TOP PRN ×2 (08:14→21:00)
[2022-02-10] MEDS: Clotrimazole 1% Cream 15 GM TUBE TOP SCH ×2 (08:14→21:01)
[2022-02-10 11:33] LABS: Bilirubin Small (Negative); Blood, Urine Large (Negative); Clarity Cloudy (Clear); Glucose, Urine (Dipstick) 100 mg/dL (Negative); Ketone, Urine Negative (Negative); Leukocyte Large (Negative); Nitrite Negative (Negative); Protein, Urine (Dipstick) > or equal to 300 mg/dL (Neg-Trace); Specific Gravity, Urine 1.015 (1.005-1.030); Urobilinogen 0.2 mg/dL (Less than 2)
[2022-02-10 11:49] LABS: RBC/HPF Greater than 50 HPF (0-3)
[2022-02-10 11:50] LABS: Bacteria/HPF 2+ HPF (None Seen); Squamous Epithelial 0-3 HPF (0-3); Urine Culture Reflex Yes Yes
[2022-02-10] MEDS: Acetaminophen 325 MG TAB PO PRN ×2 (13:16→20:59)
[2022-02-10] MEDS: Phenazopyridine HCl 95 MG TAB PO SCH ×2 (13:18→17:50)
[2022-02-10] MEDS: Losartan 25 MG TAB PO SCH (20:52)
[2022-02-10] MEDS: Ciprofloxacin 500 MG TAB PO SCH (20:53)
[2022-02-10] MEDS: Baclofen 10 MG TAB PO PRN (20:53)
[2022-02-10] MEDS: Donepezil HCl 10 MG TAB PO SCH (20:53)
[2022-02-10] MEDS: Estradiol 1 MG TAB PO SCH (21:01)
[2022-02-11] MEDS: Acetaminophen 325 MG TAB PO PRN (05:28)
[2022-02-11] MEDS: Baclofen 10 MG TAB PO PRN (05:28)
[2022-02-11] MEDS: Ciprofloxacin 500 MG TAB PO SCH (05:28)
[2022-02-11 07:39] VITALS: TEMP 97.8
[2022-02-11] MEDS: Empagliflozin 25 MG TAB PO SCH (08:11)
[2022-02-11] MEDS: Phenazopyridine HCl 95 MG TAB PO SCH ×2 (08:11→13:15)
[2022-02-11] MEDS: Oxybutynin 5 MG TAB PO SCH (08:11)
[2022-02-11] MEDS: Aspirin 81 mg Enteric Coated Tablet PO SCH (08:11)
[2022-02-11] MEDS: Lantiseptic Ointment 130 GM JAR TOP PRN (08:12)
[2022-02-11] MEDS: Clotrimazole 1% Cream 15 GM TUBE TOP SCH (08:12)
[2022-02-11 13:23] VITALS: BP 119/55
[2022-02-12] MEDS ORDERED: FLU VACC QS2022-23(65YR UP)/PF 240 MCG/0.7 ML SYRINGE IM ONE (09:00)
== END 2022-02-11 13:37 | disposition home or self-care (01) | DRG 948 ==
LOC: MADMS 19:14 → UNDOADMIN 19:14 → MADMS 02-09 07:52
PROVIDERS: ADMIT Family Medicine; ATTEND Family Medicine
DX: R53.1 Weakness (principal); B37.89 Other sites of candidiasis; G93.49 Other encephalopathy; N39.0 Urinary tract infection, site not specified; I47.1 Supraventricular tachycardia; I10 Essential (primary) hypertension; E11.9 Type 2 diabetes mellitus without complications; E78.5 Hyperlipidemia, unspecified; F03.90 Unspecified dementia, unspecified severity, without behavioral disturbance, psychotic disturbance, mood disturbance, and anxiety; G89.29 Other chronic pain; Z20.822 Contact with and (suspected) exposure to COVID-19; Z90.49 Acquired absence of other specified parts of digestive tract; Z79.84 Long term (current) use of oral hypoglycemic drugs
CPT/HCPCS: 36416; 81001; 87086; 87811; 90471; 90662; G0008